=== PATIENT | female | born 1990 | race Caucasian/White ===

== ENCOUNTER 2021-04-17 23:06 | Emergency (ER) | payer OTHER, SELFPAY ==
[~2021-04-17] VITALS: Ht 162.6 cm; Wt 63.5 kg
[2021-04-17 23:06] VITALS: BP 144/84
[2021-04-17] MEDS ORDERED: methylPREDNISolone SS 125 MG/2 ML VIAL IVP ONE (23:15)
[2021-04-17] MEDS ORDERED: MAG SULF 2000 MG/WATER PREMIX 50 ML IV ONE (23:15)
[2021-04-17] MEDS ORDERED: NACL 0.9% 1,000 ML IV ONE (23:15)
[2021-04-17] MEDS ORDERED: IPRATROPIUM 0.02% 0.5 MG/2.5 ML NEBU INH ONE ×2 (23:15)
[2021-04-17] MEDS ORDERED: ALBUTEROL 0.083% 2.5 MG/3 ML NEBU INH ONE (23:15)
[2021-04-17 23:24] LABS: BASOPHILS # (AUTO) 0.1 K/uL (0.00-0.22); BASOPHILS % (AUTO) 0.7 % (0.0-2.0); EOSINOPHILS # (AUTO) 1.4 K/uL (0-0.4); HEMATOCRIT 40.3 % (36-48); HEMOGLOBIN 13.3 g/dL (12.0-16.0); LYMPHOCYTES # (AUTO) 2.4 K/uL (2.5-16.5); LYMPHOCYTES % (AUTO) 22.5 % (20.5-51.1); MEAN CORPUSCULAR HEMOGLOBIN 28 pg (27-31); MEAN CORPUSCULAR HGB CONC 33 g/dL (33-37); MEAN CORPUSCULAR VOLUME 83.5 fL (80-94); MONOCYTES # (AUTO) 0.8 K/uL (0.8-1.0); MONOCYTES % (AUTO) 7.5 % (1.7-9.3); NEUTROPHILS # (AUTO) 5.9 K/uL (1.8-7.7); NEUTROPHILS % (AUTO) 56.3 % (42.2-75.2); PLATELET COUNT (AUTO) 346 K/uL (140-450); RED BLOOD CELL COUNT(AUTO) 4.82 MIL/uL (4.20-5.40); WHITE BLOOD COUNT (AUTO) 10.5 K/uL (4.8-10.8)
[2021-04-17 23:47] LABS: ALBUMIN 3.6 g/dL (3.4-5.0); ANION GAP 11.7 (8-16); CARBON DIOXIDE 27.2 mmol/L (21-32); CREATININE 0.7 mg/dL (0.6-1.3); POTASSIUM 3.9 mmol/L (3.5-5.1); TOTAL BILIRUBIN 0.5 mg/dL (0.0-1.0)
[2021-04-17 23:48] VITALS: BP 144/84
[2021-04-18] MEDS ORDERED: LORazepam 2 MG/ML VIAL IVP ONE
[2021-04-18] MEDS ORDERED: HYDROcodone/APAP 5/325 MG 1 TAB TAB PO PRN (01:25)
[2021-04-18] MEDS ORDERED: MORPHINE SULFATE 2 MG/ML SYR IVP PRN (01:25)
[2021-04-18] MEDS ORDERED: ALBUTEROL SULFATE/IPRATROPIU 3 ML SOL IH PRN (01:25)
[2021-04-18] MEDS ORDERED: NACL 0.9% 1,000 ML IV SCH (01:25)
[2021-04-18] MEDS ORDERED: LORazepam 2 MG/ML VIAL IVP PRN (01:25)
[2021-04-18] MEDS ORDERED: ONDANSETRON 4 MG/2 ML VIAL IVP PRN (01:25)
[2021-04-18] MEDS ORDERED: AZITHROMYCIN 500 MG in DEXTROSE 5% 250 ML IV SCH (01:25)
[2021-04-18] MEDS ORDERED: ACETAMINOPHEN 325 MG TAB PO PRN (01:25)
[2021-04-18] MEDS ORDERED: AZITHROMYCIN 500 MG INJ VIAL IV ONE (02:42)
[2021-04-18] MEDS ORDERED: methylPREDNISolone SS 40 MG/ML VIAL ONE (05:37)
[2021-04-18] MEDS ORDERED: WATER STERILE 10 ML MC ONE (05:37)
[2021-04-18] MEDS ORDERED: methylPREDNISolone SS 40 MG in WATER STERILE 1 ML IV SCH (06:00)
[2021-04-18 06:33] LABS: BARBITURATE, URINE NEGATIVE ng/ml (NEG <=200); BENZODIAZEPINE, URINE POSITIVE ng/mL (NEG <=200); CANNABINOID, URINE NEGATIVE ng/mL (NEG <=50); COCAINE, URINE NEGATIVE ng/mL (NEG <=300)
[2021-04-18 06:34] LABS: OPIATE, URINE POSITIVE ng/mL (NEG <=2000); PHENCYCLIDINE SCREEN,URINE NEGATIVE ng/mL (NEG <=25)
[2021-04-18] MEDS ORDERED: ENOXAPARIN 40 MG/0.4 ML SYR SUBQ SCH (09:00)
[2021-04-18 10:50] VITALS: BP 146/98
[2021-04-18] MEDS ORDERED: methylPREDNISolone SS 40 MG/ML VIAL IVP SCH (12:00)
== END 2021-04-18 10:50 | disposition left against medical advice (07) ==
LOC: MED 23:06 → UNDOADMIN 04-18 01:30 → MTU 04-18 01:30 → MED 04-18 10:50 → UNDODISIN 04-18 10:50
DX: J45.901 Unspecified asthma with (acute) exacerbation (principal); Z20.822 Contact with and (suspected) exposure to COVID-19; J96.02 Acute respiratory failure with hypercapnia; J96.01 Acute respiratory failure with hypoxia; F19.10 Other psychoactive substance abuse, uncomplicated; F12.90 Cannabis use, unspecified, uncomplicated; F11.90 Opioid use, unspecified, uncomplicated
CPT/HCPCS: 36415; 71045; 80053; 80305; 84703; 85025; 87040; 87420; 87426; 87804; 94640; 94644; 94760; 96365; 96366; 96367; 96372; 96375; 96376; 99285; J0456; J1650; J2060; J2920; J2930; J3475; J7030; J7613; J7644; J7060

== ENCOUNTER 2021-05-13 21:22 | Emergency (ER) | payer OTHER, SELFPAY ==
[~2021-05-13] VITALS: Ht 165.1 cm; Wt 63.5 kg
[2021-05-13 21:25] VITALS: BP 197/112
[2021-05-13] MEDS ORDERED: MAG SULF 2000 MG/WATER PREMIX 50 ML IV ONE (21:25)
[2021-05-13] MEDS ORDERED: predniSONE 20 MG TAB PO ONE (21:25)
[2021-05-13] MEDS ORDERED: ALBUTEROL SULFATE/IPRATROPIU 3 ML SOL IH ONE ×2 (21:25→22:35)
--- NOTE | 2021-05-13 21:26 | NUR ---
PATIENT TAKEN TO BED 1 VIA GURNEY BY SANNA.
--- NOTE | 2021-05-13 21:27 | NUR ---
[facility]IN ALS TO ER BED 01
--- NOTE | 2021-05-13 22:05 | NUR ---
30 YO/F BIBA W CO DIFFICULTY BREATHING/SOB X1 HOUR AGO S/P INTAKE OF METH, PHENTANYL AND HEROIN. PATIENT PRESENTS W LABORED BREATHING, USE OF ACCESSORRY MUSCLES, TACHYPNEIC, WHEEZING THROUGHOUT, AND DRY COUGH. PATIENT DENIES ANY PAIN OR CHEST PAIN. DENIES FEVERS N/V/D. PATIENT O2 SATURATION AT 88% PLACED PATIENT ON 2L O2 CALLED RT AND MADE ERMD AWARE. PATIENT SATURATION THEN AT 93%, NO NEW ORDERS AT THIS TIME. WILL CONTINUE TO MONITOR. PMH:ASTHMA NKA
--- NOTE | 2021-05-13 22:20 | NUR ---
PATIENT O2 SATURATION AT 81%, INCREASED OXYGEN TO 3L, PATIENT NOW AT 97% O2 SATURATION. ERMD MADE AWARE. WILL CONTINUE TO MONITOR.
[2021-05-13 22:51] LABS: BASOPHILS % (AUTO) 0.5 % (0.0-2.0); EOSINOPHILS # (AUTO) 0.5 K/uL (0-0.4); EOSINOPHILS % (AUTO) 5.5 % (0.0-4.0); HEMATOCRIT 35.2 % (36-48); HEMOGLOBIN 11.9 g/dL (12.0-16.0); LYMPHOCYTES # (AUTO) 1.5 K/uL (2.5-16.5); LYMPHOCYTES % (AUTO) 17.3 % (20.5-51.1); MEAN CORPUSCULAR HEMOGLOBIN 28 pg (27-31); MEAN CORPUSCULAR HGB CONC 34 g/dL (33-37); MEAN CORPUSCULAR VOLUME 81.6 fL (80-94); MONOCYTES # (AUTO) 0.8 K/uL (0.8-1.0); MONOCYTES % (AUTO) 8.6 % (1.7-9.3); NEUTROPHILS % (AUTO) 68.1 % (42.2-75.2); PLATELET COUNT (AUTO) 327 K/uL (140-450); RED BLOOD CELL COUNT(AUTO) 4.32 MIL/uL (4.20-5.40); RED CELL DISTRIBUTION WIDTH 15.1 % (11.6-13.7); WHITE BLOOD COUNT (AUTO) 8.8 K/uL (4.8-10.8)
[2021-05-13 23:04] LABS: ANION GAP 9.7 (8-16); CREATININE 0.7 mg/dL (0.6-1.3); POTASSIUM 3.7 mmol/L (3.5-5.1)
--- NOTE | 2021-05-13 23:30 | NUR ---
PATIENT LAYING IN BED LOCKED IN LOWEST POSITION X2 SIDERAILS UP FOR PATIENT SAFETY. HOB ELEVATED, PATIENT IS VERY SLEEPY. PATIENT AOX4, GCS 15. PATIENT IS DROWSY AND AWAKENS TO MILD STERNAL RUB. PATIENT ON BI-PAP, FIO2 28%, 5L OXYGEN, W OXYGEN SATURATION AT 99%. CONNECTED TO MONITOR, 118HR, 24RR. WILL CONTINUE TO MONITOR.
--- NOTE | 2021-05-13 23:56 | NUR ---
2242 PLACED PATIENT ON BIPAP. IPAP 10 EPAP 5 RR 10 FIO2 28%. PATIENT HAS RECEIVED INLINE HHNTX. PATIENT IS LETHARGIC AND TOLERATING BIPAP AT THIS TIME
[2021-05-14] MEDS ORDERED: NACL 0.9% 1,000 ML IV ONE (00:30)
--- NOTE | 2021-05-14 00:50 | NUR ---
JANELLE SAMPLES TAKEN FROM PATIENT NARES AND WALKED TO LAB. SAMPLE HANDED TO TIMOTHY FROM LAB.
[2021-05-14 01:14] VITALS: BP 121/78
[2021-05-14] MEDS ORDERED: ALBUTEROL SULFATE/IPRATROPIU 3 ML SOL IH ONE (02:00)
[2021-05-14 02:45] VITALS: BP 118/79
--- NOTE | 2021-05-14 03:00 | NUR ---
PATIENT TAKEN OF BI-PAP. PATIENT ON RA AT 17RR, 97 O2 SATURATION, 104HR. ERMD MADE AWARE. PATIENT AMBULATED TO BATHROOM W STEADY GAIT. DENIES SOB, PAIN, DIZZYNESS, OR NAUSEA.
[2021-05-14] MEDS ORDERED: PRED20TA5 PO (03:15)
[2021-05-14] MEDS ORDERED: ALBU0.0912 INH (03:15)
[2021-05-14] MEDS ORDERED: AZIT250T4 PO (03:16)
--- NOTE | 2021-05-14 03:23 | NUR ---
0315 PATIENT TAKEN OFF BIPAP AT THIS TIME. NO SOB NOTED
[2021-05-14 03:45] VITALS: BP 118/79
--- NOTE | 2021-05-14 03:45 | NUR ---
Patient discharged with v/s stable. Written and verbal after care instructions given and explained. Patient alert, oriented and verbalized understanding of instructions. Ambulatory with steady gait. All questions addressed prior to discharge. ID band removed. Patient advised to follow up with PMD. Rx of PROVENTIL HFA MDI, Z PACK, DELTASONE given. Patient educated on indication of medication including possible reaction and side effects. Opportunity to ask questions provided and answered.
== END 2021-05-14 03:45 | disposition home or self-care (01) ==
LOC: MED 21:22
DX: J45.901 Unspecified asthma with (acute) exacerbation (principal); F11.90 Opioid use, unspecified, uncomplicated; F12.90 Cannabis use, unspecified, uncomplicated; F15.90 Other stimulant use, unspecified, uncomplicated
CPT/HCPCS: 36415; 71045; 80048; 82803; 85025; 87426; 94640; 96361; 96365; 96366; 99291; G0482; J3475; J7030; J7512